=== PATIENT | female | born 1935 | race Caucasian/White ===

== ENCOUNTER 2020-03-03 07:49 | Inpatient (IN) | payer OTHER ==
[2020-02-27 19:04] VITALS: BMI 31.2
[2020-03-03] MEDS ORDERED: TRANEXAMIC ACID 1000 MG/10 ML VIAL ONE ×2 (09:39→11:51)
[2020-03-03] MEDS ORDERED: BUPIVACAINE LIPOSOME/PF (EXPAREL) 266 MG/20 ML VIAL ONE (09:47)
[2020-03-03] MEDS ORDERED: MIDAZOLAM HCL 2 MG/2 ML SINGLE DOSE VIAL ONE (09:47)
[2020-03-03] MEDS ORDERED: VANCOMYCIN 1,000 MG VIAL (RESTRICTED TO ID ONLY) ONE ×2 (10:38→14:18)
[2020-03-03] MEDS ORDERED: ceFAZolin SODIUM 1 GM VIAL ONE (10:38)
[2020-03-03] MEDS ORDERED: PROPOFOL 20 ML ONE (10:58)
[2020-03-03] MEDS ORDERED: ROCURONIUM BROMIDE 50 MG/5 ML VIAL ONE ×2 (10:58→13:04)
[2020-03-03] MEDS ORDERED: ePHEDrine SULFATE 50 MG/1 ML AMPULE ONE (13:39)
[2020-03-03] MEDS ORDERED: ONDANSETRON 4 MG/2 ML VIAL ONE (14:37)
[2020-03-03] MEDS ORDERED: NEOSTIGMINE METHYLSULFATE 0.5 MG/ML - 10 ML MDV ONE (14:43)
[2020-03-03] MEDS ORDERED: GLYCOPYRROLATE 0.2 MG/1 ML VIAL ONE (14:43)
[2020-03-03] MEDS ORDERED: ACETAMINOPHEN 1000 MG/100 ML VIAL (NON FORMULARY) IVPB ONE (15:10)
[2020-03-03] MEDS ORDERED: oxyCODONE HCL 5 MG TABLET PO PRN ×2 (15:10)
[2020-03-03] MEDS ORDERED: ONDANSETRON 4 MG/2 ML VIAL IVPUSH PRN (15:10)
[2020-03-03] MEDS ORDERED: LACTATED RINGERS SOLUTION 1,000 ML IV SCH ×2 (15:15→18:45)
[2020-03-03] MEDS ORDERED: ACETAMINOPHEN INJECTION 100 ML IVPB ONE (16:13)
[2020-03-03] MEDS ORDERED: MAGNESIUM HYDROX 2400MG/30ML ORAL SUSPENSION 30 ML CUP PO PRN (18:34)
[2020-03-03] MEDS ORDERED: MAG HYDROX/AL HYDROX/SIMETH 30 ML UNIT-DOSE CUP PO PRN (18:34)
[2020-03-03] MEDS ORDERED: BENZOCAINE/MENTH/CETYLPYRD CL 1 EACH LOZENGE MM PRN (18:45)
[2020-03-03] MEDS ORDERED: DOCUSATE SODIUM 100 MG CAPSULE (FP) PO PRN (18:50)
[2020-03-03] MEDS: CEFAZOLIN 2 GM/D5W 2 GM/50 ML ML IVPB SCH (20:26)
[2020-03-03] MEDS: ACETAMINOPHEN 325 MG TABLET (FP) PO SCH (21:27)
[2020-03-03] MEDS ORDERED: ATORVASTATIN CA 20 MG TABLET (FP) PO SCH (22:00)
[2020-03-03] MEDS ORDERED: VANCOMYCIN 1 GRAM (PRE-DOCKED) 1,000 MG/250 ML BAG IVPB ONE (23:35)
[2020-03-04] MEDS: CEFAZOLIN 2 GM/D5W 2 GM/50 ML ML IVPB SCH ×2 (03:39→10:32)
[2020-03-04] MEDS: ACETAMINOPHEN 325 MG TABLET (FP) PO SCH ×2 (03:39→10:23)
[2020-03-04 06:51] VITALS: BP 102/61; PULSE 81; TEMP 99
[2020-03-04] MEDS ORDERED: LEVOTHYROXINE NA 50 MCG TABLET (FP) PO SCH ×2 (07:00)
[2020-03-04] MEDS ORDERED: traMADol HCL 50 MG TABLET PO PRN (07:51)
[2020-03-04 08:18] LABS: CALCIUM 8.3 mg/dl (8.5-10); CREATININE 0.9 mg/dl (0.55-1.3); MAGNESIUM 1.7 mg/dL (1.8-2.4); POTASSIUM 3.1 mmol/L (3.5-5.1)
[2020-03-04 09:30] LABS: HEMATOCRIT 36.4 % (32.4-45.2); HEMOGLOBIN 12.4 GM/dL (10.7-15.3); MCH 32.5 pg (25.7-33.7); MCHC 34.1 g/dl (32.0-36.0); MEAN CELL VOLUME 95.1 fl (80-96); MEAN PLT VOLUME 8.1 fl (7.5-11.1); PLATELET COUNT 244 K/MM3 (134-434); RBC 3.83 M/mm3 (3.60-5.2); RDW 12.7 % (11.6-15.6); WHITE BLOOD COUNT 9.7 K/mm3 (4.0-10.0)
[2020-03-04] MEDS ORDERED: amLODIPine BESYLATE 5 MG TABLET (FP) PO SCH (10:00)
[2020-03-04] MEDS ORDERED: ASPIRIN 325 MG ENTERIC COATED TABLET (FP) PO SCH (10:00)
[2020-03-04] MEDS ORDERED: MULTIVITAMINS (DAILY MVI) TABLET (FP) PO SCH (10:00)
[2020-03-04] MEDS ORDERED: LOSARTAN POTASSIUM 50 MG TABLET PO SCH (10:00)
[2020-03-04] MEDS ORDERED: MAGNESIUM SULF 50% (8.12 MEQ/2 ML-1 GM VIAL) IVPB ONE (11:35)
[2020-03-04] MEDS ORDERED: MAGNESIUM SULFATE IN WATER 2 GM/50 ML IVPB IVPB ONE (11:45)
[2020-03-04] MEDS ORDERED: POTASSIUM CHLORIDE TABS 20 MEQ TABLET.ER (FP) PO ONE ×2 (11:45→12:15)
[2020-03-04] MEDS: MAGNESIUM OXIDE 400 MG TABLET (FP) PO ONE (12:49)
== END 2020-03-04 13:44 | disposition home or self-care (01) | DRG 483 ==
LOC: FM/S 07:49
PROVIDERS: ADMIT Orthopaedic Surgery; ATTEND Orthopaedic Surgery
PROC: 0LS40ZZ Reposition Left Upper Arm Tendon, Open Approach (ICD-10-PCS; 2020-03-03)
PROC: 0RHK04Z Insertion of Internal Fixation Device into Left Shoulder Joint, Open Approach (ICD-10-PCS; 2020-03-03)
PROC: 0RRK0JZ Replacement of Left Shoulder Joint with Synthetic Substitute, Open Approach (ICD-10-PCS; principal; 2020-03-03 12:15)
DX: M19.012 Primary osteoarthritis, left shoulder (principal); I50.30 Unspecified diastolic (congestive) heart failure; M24.112 Other articular cartilage disorders, left shoulder; M75.22 Bicipital tendinitis, left shoulder; E78.5 Hyperlipidemia, unspecified; I25.10 Atherosclerotic heart disease of native coronary artery without angina pectoris; I48.91 Unspecified atrial fibrillation; I48.0 Paroxysmal atrial fibrillation; I11.0 Hypertensive heart disease with heart failure
CPT/HCPCS: 36415; 71046-TC-FY; 73030-TC-LT-FY; 80048; 83735; 85027; 86850; 86900; 86901; 88304-TC; 88311-TC; 94760; 97116-GP; 97162-GP; J0131

== ENCOUNTER → 2020-08-19 | Day surgery (SDC) | payer OTHER ==
[2020-08-19 10:05] LABS: BASO % 0.9 % (0-2.0); EOS % 3.8 % (0-4.5); HEMATOCRIT 41.2 % (32.4-45.2); HEMOGLOBIN 14.2 GM/dL (10.7-15.3); LYMPH % 32.4 % (8-40); MCH 32.6 pg (25.7-33.7); MCHC 34.5 g/dl (32.0-36.0); MEAN CELL VOLUME 94.5 fl (80-96); MEAN PLT VOLUME 7.9 fl (7.5-11.1); MONO % 11.4 % (3.8-10.2); NEUT % 51.5 % (42.8-82.8); PLATELET COUNT 264 K/MM3 (134-434); RBC 4.36 M/mm3 (3.60-5.2); RDW 13.5 % (11.6-15.6); WHITE BLOOD COUNT 5.5 K/mm3 (4.0-10.0)
[2020-08-19 10:07] LABS: EPI CELLS 35 /uL (0-25.1); HYALINE CASTS 1 /uL (0-3.1); PH,URINE 5.5 (5.0-8.0); URINE APPEARANCE CLEAR; URINE BACTERIA 234 /uL (0-1359); URINE BILIRUBIN NEGATIVE (NEGATIVE); URINE COLOR YELLOW; URINE GLUCOSE (UA) NEGATIVE (NEGATIVE); URINE KETONE NEGATIVE (NEGATIVE); URINE LEUK ESTERASE 1+ (NEGATIVE); URINE NITRITE NEGATIVE (NEGATIVE); URINE PROTEIN NEGATIVE (NEGATIVE); URINE RBC 4 /uL (0-23.9); URINE UROBILINOGEN 0.2 mg/dL (0.2-1.0); URINE WBC 28 /uL (0-25.8)
[2020-08-19 10:27] LABS: ALBUMIN 3.9 g/dl (3.4-5.0); BLOOD UREA NITROGEN 20.2 mg/dL (7-18)
[2020-08-19 10:28] LABS: CALCIUM 9.2 mg/dL (8.5-10.1)
[2020-08-19 10:32] LABS: BILIRUBIN,TOTAL 0.8 mg/dL (0.2-1); CREATININE 0.9 mg/dL (0.55-1.3)
[2020-08-19 10:33] LABS: TOT PROT 7.4 g/dl (6.4-8.2)
[2020-08-20 23:16] LABS: MICROALBUMIN/CREATININE RATIO <6 mg/g creat (0-29)
== END | disposition home or self-care (01) ==
LOC: JRADIR 09:00
PROVIDERS: ATTEND Internal Medicine Endocrinology, Diabetes & Metabolism
PROC: 0G9K3ZX Drainage of Thyroid Gland, Percutaneous Approach, Diagnostic (ICD-10-PCS; principal; 2020-08-19)
DX: E04.1 Nontoxic single thyroid nodule (principal)
CPT/HCPCS: 10005; 36415; 76942; 80053; 80061; 81003; 82043; 82306; 82570; 83721; 84436; 84439; 84443; 84481; 85025; 86376; 86800; 88173; 88305-TC

== ENCOUNTER 2021-02-16 06:07 | Inpatient (IN) | payer OTHER ==
[2021-02-13 11:05] VITALS: BMI 31.0
[2021-02-16] MEDS ORDERED: DEXAMETHASONE SOD PHOSPHATE 10 MG/1 ML VIAL ONE (07:02)
[2021-02-16] MEDS ORDERED: ROPIVACAINE HCL 0.5% 30ML VIAL ONE (07:02)
[2021-02-16] MEDS ORDERED: MIDAZOLAM HCL 2 MG/2 ML SINGLE DOSE VIAL ONE (07:02)
[2021-02-16] MEDS ORDERED: TRANEXAMIC ACID 1000 MG/10 ML VIAL ONE ×3 (07:21→10:05)
[2021-02-16] MEDS ORDERED: VANCOMYCIN 1,000 MG VIAL (RESTRICTED TO ID ONLY) ONE ×2 (07:21→09:59)
[2021-02-16] MEDS ORDERED: PROPOFOL 20 ML ONE ×3 (07:35→09:58)
[2021-02-16] MEDS ORDERED: SUCCINYLCHOLINE CHLORIDE 200 MG/10 ML SYRINGE ONE (07:35)
[2021-02-16] MEDS ORDERED: ROCURONIUM BROMIDE 50 MG/5 ML SYRINGE ONE ×2 (07:35→09:38)
[2021-02-16] MEDS ORDERED: BUPIVACAINE LIPOSOME/PF (EXPAREL) 266 MG/20 ML VIAL ONE (07:37)
[2021-02-16] MEDS ORDERED: BUPIVACAINE HCL/PF 0.5% (5MG/ML) 10 ML VIAL ONE (07:38)
[2021-02-16] MEDS ORDERED: MAGNESIUM HYDROX 2400MG/30ML ORAL SUSPENSION 30 ML CUP PO PRN (07:40)
[2021-02-16] MEDS ORDERED: MAG HYDROX/AL HYDROX/SIMETH 30 ML UNIT-DOSE CUP PO PRN (07:40)
[2021-02-16] MEDS ORDERED: ONDANSETRON 4 MG/2 ML VIAL IVPUSH PRN ×2 (07:40→11:11)
[2021-02-16] MEDS ORDERED: LACTATED RINGERS SOLUTION 1,000 ML IV SCH (07:45)
[2021-02-16] MEDS ORDERED: ceFAZolin SODIUM 1 GM VIAL ONE ×3 (09:59→23:24)
[2021-02-16] MEDS ORDERED: LIDOCAINE HCL/PF 2% SDV 5ML VIAL ONE (09:59)
[2021-02-16] MEDS ORDERED: ONDANSETRON 4 MG/2 ML VIAL ONE (09:59)
[2021-02-16] MEDS ORDERED: DEXAMETHASONE SOD PHOSPHATE 4 MG/1 ML VIAL ONE (09:59)
[2021-02-16] MEDS ORDERED: NEOSTIGMINE METHYLSULFATE 0.5 MG/ML - 10 ML MDV ONE (10:00)
[2021-02-16] MEDS ORDERED: SEVOFLURANE 250 ML BTL ONE (10:01)
[2021-02-16] MEDS ORDERED: DESFLURANE GAS 240 ML BOTTLE IH ONE (10:01)
[2021-02-16] MEDS ORDERED: oxyCODONE HCL 5 MG TABLET PO PRN (11:11)
[2021-02-16] MEDS ORDERED: ACETAMINOPHEN INJECTION 100 ML IVPB ONE (11:57)
[2021-02-16] MEDS: ACETAMINOPHEN 1000 MG/100 ML VIAL IVPB SCH ×4 (12:01→23:29)
[2021-02-16] MEDS: SENNOSIDES/DOCUSATE COMBO (SENNA PLUS) TABLET (UD) PO SCH ×2 (13:09→21:16)
[2021-02-16] MEDS: MULTIVITAMINS (DAILY MVI) TABLET (FP) PO SCH (13:10)
[2021-02-16] MEDS: PANTOPRAZOLE 40 MG TABLET PO SCH (13:10)
[2021-02-16] MEDS ORDERED: DEXTROSE 5%-WATER - 50 ML IVPB ONE ×2 (15:13→23:24)
[2021-02-16] MEDS: CEFAZOLIN 2 GM in DEXTROSE 5%-WATER - 50 ML IVPB SCH ×2 (15:19→23:29)
[2021-02-16] MEDS ORDERED: VANCOMYCIN 1 GM in D5W (PRE-DOCKED) 1,000 MG/250 ML IVPB ONE (20:03)
[2021-02-16] MEDS ORDERED: ATORVASTATIN CA 20 MG TABLET (FP) PO SCH (22:00)
[2021-02-17] MEDS: ACETAMINOPHEN 1000 MG/100 ML VIAL IVPB SCH (05:33)
[2021-02-17 06:22] VITALS: BP 116/62; TEMP 98.6
[2021-02-17] MEDS ORDERED: LEVOTHYROXINE NA 50 MCG TABLET (FP) PO SCH (07:00)
[2021-02-17 08:17] LABS: HEMATOCRIT 39.3 % (32.4-45.2); HEMOGLOBIN 12.8 GM/dl (10.7-15.3); MCH 31.3 pg (25.7-33.7); MCHC 32.5 g/dl (32.0-36.0); MEAN CELL VOLUME 96.3 fl (80-96); PLATELET COUNT 260 10^3/uL (134-434); RBC 4.09 M/mm3 (3.60-5.2); RDW 12.6 % (11.6-15.6); WHITE BLOOD COUNT 10.2 K/mm3 (4.0-10.8)
[2021-02-17 08:22] LABS: CALCIUM 8.9 mg/dl (8.5-10); CREATININE 0.9 mg/dl (0.55-1.3)
[2021-02-17] MEDS ORDERED: ceFAZolin SODIUM 1 GM VIAL ONE (09:50)
[2021-02-17] MEDS ORDERED: DEXTROSE 5%-WATER - 50 ML IVPB ONE (09:51)
[2021-02-17] MEDS: MULTIVITAMINS (DAILY MVI) TABLET (FP) PO SCH (09:53)
[2021-02-17] MEDS: SENNOSIDES/DOCUSATE COMBO (SENNA PLUS) TABLET (UD) PO SCH (09:53)
[2021-02-17] MEDS: PANTOPRAZOLE 40 MG TABLET PO SCH (09:54)
[2021-02-17] MEDS: CEFAZOLIN 2 GM in DEXTROSE 5%-WATER - 50 ML IVPB SCH (09:55)
[2021-02-17] MEDS ORDERED: ASPIRIN 325 MG ENTERIC COATED TABLET (FP) PO SCH (10:00)
[2021-02-17] MEDS ORDERED: HYDROCHLOROTHIAZIDE 12.5 MG CAPSULE (FP) PO SCH (10:00)
[2021-02-17] MEDS ORDERED: amLODIPine BESYLATE 5 MG TABLET (FP) PO SCH (10:00)
[2021-02-17] MEDS ORDERED: LOSARTAN POTASSIUM 50 MG TABLET PO SCH (10:00)
[2021-02-17 11:50] VITALS: PULSE 87
[2021-02-17] MEDS ORDERED: POTASSIUM CHLORIDE TABS 20 MEQ TABLET.ER (FP) PO ONE (12:00)
[2021-02-18] MEDS ORDERED: HYDROCHLOROTHIAZIDE 25 MG TABLET (FP) PO SCH (10:00)
== END 2021-02-17 13:49 | disposition home or self-care (01) | DRG 483 ==
LOC: FM/S 06:07
PROVIDERS: ADMIT Orthopaedic Surgery; ATTEND Nurse Practitioner Acute Care
PROC: 0LS30ZZ Reposition Right Upper Arm Tendon, Open Approach (ICD-10-PCS; 2021-02-16)
PROC: 0RRJ00Z Replacement of Right Shoulder Joint with Reverse Ball and Socket Synthetic Substitute, Open Approach (ICD-10-PCS; principal; 2021-02-16 08:30)
DX: M19.011 Primary osteoarthritis, right shoulder (principal); I50.32 Chronic diastolic (congestive) heart failure; I11.0 Hypertensive heart disease with heart failure; I25.10 Atherosclerotic heart disease of native coronary artery without angina pectoris; I48.0 Paroxysmal atrial fibrillation; E03.9 Hypothyroidism, unspecified; M75.21 Bicipital tendinitis, right shoulder
CPT/HCPCS: 36415; 73030-TC-RT-FY; 80048; 85027; 88304-TC; 88305-TC; 88311-TC; 94010; 94760; 97116-GP; 97162-GP; J0131; J1100

== ENCOUNTER → 2022-11-23 | Day surgery (SDC) | payer OTHER | END | disposition home or self-care (01) | LOC: JRADIR 10:34 | PROVIDERS: ATTEND Internal Medicine Endocrinology, Diabetes & Metabolism | PROC: 0GBG3ZX Excision of Left Thyroid Gland Lobe, Percutaneous Approach, Diagnostic (ICD-10-PCS; principal; 2022-11-23) | DX: E04.1 Nontoxic single thyroid nodule (principal) | CPT/HCPCS: 10005; 76942; 88173; 88305-TC ==

== ENCOUNTER 2024-03-23 04:32 | Day surgery (SDC) | payer OTHER ==
[2024-03-20 10:26] VITALS: BMI 28.3
[2024-03-23] MEDS ORDERED: BUPIVACAINE HCL/PF 0.25% (2.5MG/ML) 10 ML VIAL ONE (07:41)
[2024-03-23] MEDS ORDERED: LIDOCAINE HCL/PF 1% SDV 5ML VIAL ONE (07:42)
[2024-03-23] MEDS ORDERED: BUPIVACAINE HCL/PF 0.5% (5MG/ML) 10 ML VIAL ONE (07:42)
[2024-03-23] MEDS ORDERED: TRIAMCINOLONE ACET 40MG/1ML VIAL ONE ×2 (07:42→12:33)
[2024-03-23] MEDS ORDERED: ACETAMINOPHEN 500 MG TABLET (FP) PO PRN (08:48)
[2024-03-23 11:50] VITALS: RESP 20
[2024-03-23] MEDS: LIDOCAINE HCL 1% PRESERVATIVE FREE - 30ML VIAL IJ ONE ×3 (12:49→12:52)
[2024-03-23] MEDS: IOHEXOL 180 MG/1 ML ML IJ ONE ×3 (12:50→12:54)
[2024-03-23] MEDS: TRIAMCINOLONE ACET 40MG/1ML VIAL IM ONE ×2 (12:55)
[2024-03-23] MEDS: BUPIVACAINE HCL/PF 0.5% (5 MG/ML) 30 ML VIAL IJ ONE ×3 (12:55)
[2024-03-23 16:44] VITALS: BP 125/68; PULSE 65; TEMP 98.1
== END 2024-03-23 13:49 | disposition home or self-care (01) ==
LOC: JASU-SURG 04:32
PROVIDERS: ATTEND Pain Medicine Pain Medicine
PROC: 3E0U3BZ Introduction of Anesthetic Agent into Joints, Percutaneous Approach (ICD-10-PCS; 2024-03-23)
PROC: 3E0U33Z Introduction of Anti-inflammatory into Joints, Percutaneous Approach (ICD-10-PCS; principal; 2024-03-23 13:00)
DX: M16.12 Unilateral primary osteoarthritis, left hip (principal)
CPT/HCPCS: 76000-TC-FY

== ENCOUNTER 2024-07-27 06:09 | Day surgery (SDC) | payer OTHER ==
[2024-07-25 14:07] VITALS: BMI 28.6
[2024-07-27] MEDS ORDERED: BUPIVACAINE HCL/PF 0.25% (2.5MG/ML) 10 ML VIAL ONE ×2 (07:10→07:18)
[2024-07-27] MEDS ORDERED: LIDOCAINE HCL/PF 2% SDV 5ML VIAL ONE (07:10)
[2024-07-27] MEDS ORDERED: LIDOCAINE HCL/PF 1% SDV 5ML VIAL ONE (07:11)
[2024-07-27] MEDS ORDERED: BUPIVACAINE HCL/PF 0.5% (5MG/ML) 10 ML VIAL ONE ×2 (07:11→07:18)
[2024-07-27] MEDS ORDERED: BUPIVACAINE HCL/PF 0.75% 10 ML VIAL ONE (07:11)
[2024-07-27] MEDS ORDERED: TRIAMCINOLONE ACET 40MG/1ML VIAL ONE (07:18)
[2024-07-27] MEDS ORDERED: ACETAMINOPHEN 500 MG TABLET (FP) PO PRN (08:41)
[2024-07-27 09:04] VITALS: RESP 18
[2024-07-27] MEDS: LIDOCAINE HCL 1% PRESERVATIVE FREE - 30ML VIAL IJ ONE ×3 (11:02)
[2024-07-27] MEDS: IOHEXOL 180 MG/1 ML ML IJ ONE ×2 (11:02)
[2024-07-27] MEDS: TRIAMCINOLONE ACET 40MG/1ML VIAL IM ONE ×2 (11:06)
[2024-07-27] MEDS: BUPIVACAINE HCL/PF 0.5% (5 MG/ML) 30 ML VIAL IJ ONE ×3 (11:06)
[2024-07-27 11:31] VITALS: BP 145/79; TEMP 97.9
[2024-07-27 11:33] VITALS: PULSE 70
== END 2024-07-27 12:10 | disposition home or self-care (01) ==
LOC: JASU-SURG 06:09
PROVIDERS: ATTEND Pain Medicine Pain Medicine
PROC: 3E023BZ Introduction of Anesthetic Agent into Muscle, Percutaneous Approach (ICD-10-PCS; 2024-07-27)
PROC: 3E0233Z Introduction of Anti-inflammatory into Muscle, Percutaneous Approach (ICD-10-PCS; principal; 2024-07-27 10:00)
DX: M16.12 Unilateral primary osteoarthritis, left hip (principal)
CPT/HCPCS: 76000-TC-FY